=== PATIENT | male | born 1955 | race Caucasian/White ===

== ENCOUNTER 2020-01-02 13:32 | Inpatient (IN) | payer MEDICARE, OTHER ==
[~2020-01-02] VITALS: Ht 182.9 cm; Wt 100.5 kg
[2020-01-02 14:00] LABS: MEAN CORPUSCULAR HEMOGLOBIN 29.8 pg (27.5-34.5); MEAN PLATELET VOLUME 7.4 fL (7.4-10.4); PLATELET COUNT 369 x10^3/uL (130-400); RED BLOOD COUNT 4.47 x10^6/uL (4.38-5.82); RED CELL DISTRIBUTION WIDTH 12.7 % (9.4-14.8)
[2020-01-02 14:12] LABS: ALANINE AMINOTRANSFERASE 127 U/L (12-78); ALBUMIN 2.8 g/dL (3.4-5.0); ANION GAP 6 mmol/L (5-15); CALCIUM 8.5 mg/dL (8.5-10.1); CHLORIDE 96 mmol/L (98-107); CREATININE 1.28 mg/dL (0.7-1.3)
[2020-01-02 14:14] LABS: ALKALINE PHOSPHATASE 125 U/L (45-117); BILIRUBIN,TOTAL 0.9 mg/dL (0.2-1.0); TOTAL PROTEIN 8.4 g/dL (6.4-8.2)
[2020-01-02 14:40] LABS: MD YES
[2020-01-02 14:42] LABS: <PLATELET ESTIMATE> ADEQUATE; <PLT MORPHOLOGY> NORMAL PLT MORPH; <RBC MORPHOLOGY> NORMAL; BAND#(MANUAL) 1.56 x10^3/uL; BANDS%(MANUAL) 6 % (0-7); LYMPH#(MANUAL) 0.52 x10^3/uL (1-3.4); LYMPHS% (MANUAL) 2 % (22-44); MONOS#(MANUAL) 2.08 x10^3/uL (0.3-2.7); MONOS% (MANUAL) 8 % (2-9); SEG#(MANUAL) 21.84 x10^3/uL (1.8-6.8); SEGS% (MANUAL) 84 % (42-75)
--- NOTE | 2020-01-02 16:42 | NUR ---
RECENT XR AT URGENT CARE TODAY. PT CHANGED INTO A HOSPITAL GOWN AND IS AWAITING AN MD TO ASSESS.
--- NOTE | 2020-01-02 16:47 | NUR ---
MD IS AT THE BEDSIDE TO ASSESS.
[2020-01-02] MEDS ORDERED: SODIUM CHLORIDE FLUSH 10ML SYR IVF ONE (17:00)
[2020-01-02] MEDS ORDERED: SODIUM CHLORIDE 0.9% 1,000ML IVBOLUS ONE (17:00)
--- NOTE | 2020-01-02 17:12 | NUR ---
REPORT FROM ASHLIE LEVY. PT RESTING ON GURNEY. NADN. MONITORS APPLIED. PT AWARE OF NEED FOR UA. PROVIDED W/ URINAL.
--- NOTE | 2020-01-02 17:21 | NUR ---
PT RESTING IN BED. NADN. VSS.
[2020-01-02] MEDS ORDERED: OMNIPAQUE 350 MG/ML, 100ML BOTTLE ONE (17:25)
--- NOTE | 2020-01-02 17:38 | NUR ---
PT AWARE OF NEED FOR UA. STATES HE WILL ATTEMPT.
[2020-01-02] MEDS ORDERED: CEFTRIAXONE PMX 1GM/50ML 50 ML IVPB ONE (18:00)
[2020-01-02] MEDS ORDERED: METRONIDAZOLE PMX 500MG/100ML 100 ML IV ONE (18:00)
[2020-01-02] MEDS ORDERED: ATOR-2 PO (18:08)
[2020-01-02] MEDS ORDERED: OXYC10TA6 PO (18:08)
[2020-01-02] MEDS ORDERED: AMIT50TA PO (18:08)
[2020-01-02] MEDS ORDERED: ASPI-515 PO (18:08)
[2020-01-02] MEDS ORDERED: METRONIDAZOLE PMX 500MG/100ML 100 ML ONE (18:11)
[2020-01-02] MEDS ORDERED: CEFTRIAXONE PMX 1GM/50ML 50 ML ONE (18:11)
--- NOTE | 2020-01-02 18:12 | NUR ---
PT RESTING ON LIBBY. NARCISO. TAMARAS. PT AWARE OF POC FOR ADMIT AND IS AGREEABLE.
[2020-01-02 18:22] LABS: MICROSCOPIC INDICATED
--- NOTE | 2020-01-02 18:40 | NUR ---
PT MOVED FROM [facility] TO [facility] BED.
--- NOTE | 2020-01-02 19:05 | NUR ---
REPORT GIVEN TO SAMUEL MARTELL RN.
[2020-01-02] MEDS ORDERED: MORPHINE SULFATE 4 MG/ML, 1ML ONE ×2 (19:12→21:50)
[2020-01-02] MEDS: morphine SULFATE 10 MG/ML, 1ML IVPush PRN ×2 (19:14→22:46)
--- NOTE | 2020-01-02 19:21 | NUR ---
REPORT GIVEN TO CHANDANA DANIEL RN.
[2020-01-02] MEDS ORDERED: ONDANSETRON 2MG/ML, 2ML IVPush PRN (19:30)
[2020-01-02] MEDS ORDERED: BISACODYL 10 MG SUPP PR PRN (19:30)
[2020-01-02] MEDS ORDERED: PIPERACILLIN/TAZO/PMX 3.375GM 50 ML ONE (19:34)
[2020-01-02] MEDS ORDERED: LIDOCAINE 1%, 10ML ONE (19:43)
[2020-01-02] MEDS: PIPERACILLIN/TAZO/PMX 3.375GM 50 ML IV SCH (19:44)
[2020-01-02] MEDS ORDERED: FENTANYL PF 100 MCG/2ML ONE ×2 (19:50)
[2020-01-02] MEDS ORDERED: MIDAZOLAM 1 MG/ML, 5ML ONE (19:51)
[2020-01-02] MEDS: SODIUM CHLORIDE 0.9% 1,000 ML IV SCH (19:53)
[2020-01-02 21:39] VITALS: BP 145/82
[2020-01-02] MEDS ORDERED: morphine SULFATE 10 MG/ML, 1ML ONE (22:42)
[2020-01-03] MEDS ORDERED: PIPERACILLIN/TAZO/PMX 3.375GM 50 ML ONE ×3 (00:54→11:02)
[2020-01-03] MEDS: PIPERACILLIN/TAZO/PMX 3.375GM 50 ML IV SCH ×4 (01:18→23:34)
[2020-01-03] MEDS ORDERED: morphine SULFATE 10 MG/ML, 1ML ONE ×2 (03:04→13:10)
[2020-01-03] MEDS: morphine SULFATE 10 MG/ML, 1ML IVPush PRN ×6 (03:08→23:00)
[2020-01-03] MEDS: SODIUM CHLORIDE 0.9% 1,000 ML IV SCH ×3 (03:11→18:13)
[2020-01-03 03:15] VITALS: BP 131/74
[2020-01-03 05:14] LABS: MEAN CORPUSCULAR HEMOGLOBIN 29.7 pg (27.5-34.5); MEAN CORPUSCULAR HGB CONC 33.8 g/dL (33.2-36.2); MEAN PLATELET VOLUME 7.6 fL (7.4-10.4); PLATELET COUNT 311 x10^3/uL (130-400); RED BLOOD COUNT 4.42 x10^6/uL (4.38-5.82); RED CELL DISTRIBUTION WIDTH 13.1 % (9.4-14.8)
[2020-01-03 05:18] LABS: CHLORIDE 101 mmol/L (98-107)
[2020-01-03 05:27] LABS: ALANINE AMINOTRANSFERASE 107 U/L (12-78); ALBUMIN 2.4 g/dL (3.4-5.0); ALKALINE PHOSPHATASE 107 U/L (45-117); ANION GAP 3 mmol/L (5-15); CALCIUM 8.8 mg/dL (8.5-10.1); CREATININE 1.07 mg/dL (0.7-1.3); TOTAL PROTEIN 7.4 g/dL (6.4-8.2)
[2020-01-03 06:04] LABS: MD YES
[2020-01-03 06:07] LABS: BAND#(MANUAL) 1.21 x10^3/uL; BANDS%(MANUAL) 5 % (0-7); LYMPH#(MANUAL) 0.96 x10^3/uL (1-3.4); LYMPHS% (MANUAL) 4 % (22-44); MONOS#(MANUAL) 1.45 x10^3/uL (0.3-2.7); MONOS% (MANUAL) 6 % (2-9); SEG#(MANUAL) 20.49 x10^3/uL (1.8-6.8); SEGS% (MANUAL) 85 % (42-75)
[2020-01-03 06:12] LABS: <PLATELET ESTIMATE> ADEQUATE; POLYCHROMASIA 1+; TOXIC GRAN 1+
[2020-01-03 06:13] LABS: <PLT MORPHOLOGY> NORMAL PLT MORPH
--- NOTE | 2020-01-03 08:00 | NUR ---
RECEIVED REPORT FROM CHANDANA DANIEL RN. PT RESTING IN BED.
[2020-01-03] MEDS ORDERED: SODIUM BICARBONATE 1 MEQ/ML, 50ML VIAL IVPush ONE (08:30)
[2020-01-03] MEDS ORDERED: DEXTROSE 50%, 50ML SYRINGE IVPush ONE (08:30)
[2020-01-03] MEDS ORDERED: CALCIUM GLUCONATE 0.46MEQ/1ML IVPush ONE (08:30)
[2020-01-03] MEDS ORDERED: INSULIN REGULAR 100 UNITS/ML, 3ML VIAL IVPush ONE (08:30)
[2020-01-03] MEDS ORDERED: DEXTROSE 50%, 50ML SYRINGE ONE (09:49)
[2020-01-03] MEDS ORDERED: MORPHINE SULFATE 4 MG/ML, 1ML ONE (09:49)
[2020-01-03] MEDS ORDERED: INSULIN SINGLE DOSE, ER ONE (09:50)
[2020-01-03] MEDS ORDERED: SODIUM BICARB 8.4%, 50ML SYRINGE ONE (09:51)
--- NOTE | 2020-01-03 10:53 | NUR ---
PT MEDICATED PER MAY. PT RESTING IN BED. NADN. VSS. AWARE OF POC FOR ADMIT AND IV ABX. PT AWARE OF NPO STATUS.
[2020-01-03] MEDS ORDERED: VANCOMYCIN PER PHARMACY MC PRN (11:00)
--- NOTE | 2020-01-03 11:01 | NUR ---
YELLOW SLIP SENT TO PHARMACY FOR ZOSYN PER MAY.
[2020-01-03] MEDS ORDERED: VANCOMYCIN 2,300 MG in SODIUM CHLORIDE 0.9% 500 ML IV ONE (11:30)
--- NOTE | 2020-01-03 11:51 | NUR ---
PT PROVIDED W/ LEMON SWABS PT IS NPO AT THIS TIME.
[2020-01-03] MEDS ORDERED: PHARMACOKINETIC CONSULTATION MC ONE (13:00)
[2020-01-03] MEDS ORDERED: PHARMACOKINETIC MONITORING MC PRN (13:00)
--- NOTE | 2020-01-03 13:17 | NUR ---
PT MEDICATED WITH 5MG MORPHINE FOR 7/10 ABD PAIN. PT ON CONTINUOUS SPO2. WILL CONTINUE TO MONITOR.
--- NOTE | 2020-01-03 14:40 | NUR ---
REPORT GIVEN TO RECEIVING RN. ALL QUESTIONS ANSWERED. AWAITING PT TRANSPORT.
[2020-01-03 15:01] VITALS: BP 116/65
[2020-01-03 18:38] VITALS: BP 126/78
[2020-01-04] MEDS: VANCOMYCIN 1,800 MG in SODIUM CHLORIDE 0.9% 250 ML IV SCH ×2 (00:07→12:00)
[2020-01-04 00:57] VITALS: BP 110/71
[2020-01-04] MEDS: morphine SULFATE 10 MG/ML, 1ML IVPush PRN ×8 (02:40→23:47)
[2020-01-04] MEDS: SODIUM CHLORIDE 0.9% 1,000 ML IV SCH ×3 (04:56→23:45)
[2020-01-04] MEDS: PIPERACILLIN/TAZO/PMX 3.375GM 50 ML IV SCH ×4 (05:38→23:45)
[2020-01-04 05:55] LABS: MEAN CORPUSCULAR HEMOGLOBIN 29.5 pg (27.5-34.5); MEAN CORPUSCULAR HGB CONC 33.4 g/dL (33.2-36.2); MEAN PLATELET VOLUME 7.8 fL (7.4-10.4); PLATELET COUNT 278 x10^3/uL (130-400); RED BLOOD COUNT 3.89 x10^6/uL (4.38-5.82); RED CELL DISTRIBUTION WIDTH 13.2 % (9.4-14.8)
[2020-01-04 06:00] LABS: CHLORIDE 106 mmol/L (98-107)
[2020-01-04 06:13] LABS: ALANINE AMINOTRANSFERASE 67 U/L (12-78); ALKALINE PHOSPHATASE 90 U/L (45-117); ANION GAP 3 mmol/L (5-15); BILIRUBIN,TOTAL 0.8 mg/dL (0.2-1.0); CALCIUM 8.1 mg/dL (8.5-10.1); CREATININE 0.92 mg/dL (0.7-1.3); TOTAL PROTEIN 6.4 g/dL (6.4-8.2)
[2020-01-04 06:41] LABS: MD SCAN
[2020-01-04 06:44] LABS: BASOPHILS % (AUTO) 0 % (0-1); EOSINOPHILS % (AUTO) 0 % (1-7); LYMPHOCYTES % (AUTO) 3 % (22-44); MONOCYTES % (AUTO) 5 % (2-9); NEUTROPHILS % (AUTO) 92 % (42-75)
[2020-01-04 07:44] VITALS: BP 121/71
[2020-01-04 12:37] VITALS: BP 108/56
[2020-01-04 19:15] VITALS: BP 108/65
[2020-01-05 02:15] VITALS: BP 126/68
[2020-01-05] MEDS: morphine SULFATE 10 MG/ML, 1ML IVPush PRN ×4 (02:48→12:04)
[2020-01-05 05:15] LABS: BASOPHILS % (AUTO) 0 % (0-1); EOSINOPHILS % (AUTO) 0 % (1-7); LYMPHOCYTES % (AUTO) 5 % (22-44); MEAN CORPUSCULAR HEMOGLOBIN 28.9 pg (27.5-34.5); MEAN CORPUSCULAR HGB CONC 32.9 g/dL (33.2-36.2); MEAN PLATELET VOLUME 7.9 fL (7.4-10.4); MONOCYTES % (AUTO) 6 % (2-9); NEUTROPHILS % (AUTO) 90 % (42-75); PLATELET COUNT 294 x10^3/uL (130-400); RED BLOOD COUNT 3.85 x10^6/uL (4.38-5.82); RED CELL DISTRIBUTION WIDTH 13.1 % (9.4-14.8)
[2020-01-05 05:31] LABS: ALANINE AMINOTRANSFERASE 60 U/L (12-78); ALBUMIN 1.8 g/dL (3.4-5.0); ANION GAP 5 mmol/L (5-15); CALCIUM 7.5 mg/dL (8.5-10.1); CHLORIDE 105 mmol/L (98-107); CREATININE 0.93 mg/dL (0.7-1.3)
[2020-01-05 05:33] LABS: ALKALINE PHOSPHATASE 87 U/L (45-117); BILIRUBIN,TOTAL 0.8 mg/dL (0.2-1.0); TOTAL PROTEIN 5.9 g/dL (6.4-8.2)
[2020-01-05] MEDS: PIPERACILLIN/TAZO/PMX 3.375GM 50 ML IV SCH ×3 (06:03→17:57)
[2020-01-05 06:07] LABS: MD SCAN
[2020-01-05 08:40] VITALS: BP 135/82
[2020-01-05] MEDS ORDERED: SENN1TAB59 PO (12:46)
[2020-01-05] MEDS ORDERED: OXYC10TA6 PO (12:46)
[2020-01-05 14:02] VITALS: BP 116/72
== END 2020-01-05 18:00 | disposition home or self-care (01) | DRG 871 ==
LOC: ED 16:46 → EDIP 19:25 → 4NE 01-03 15:10
PROVIDERS: ADMIT Family Medicine; ATTEND Hospitalist
PROC: 0W9H30Z Drainage of Retroperitoneum with Drainage Device, Percutaneous Approach (ICD-10-PCS; 2020-01-02)
PROC: 02HV33Z Insertion of Infusion Device into Superior Vena Cava, Percutaneous Approach (ICD-10-PCS; principal; 2020-01-05)
PROC: B548ZZA Ultrasonography of Superior Vena Cava, Guidance (ICD-10-PCS; 2020-01-05)
DX: A41.9 Sepsis, unspecified organism (principal); K68.19 Other retroperitoneal abscess; K63.0 Abscess of intestine; E87.1 Hypo-osmolality and hyponatremia; F11.20 Opioid dependence, uncomplicated; D63.8 Anemia in other chronic diseases classified elsewhere; E78.5 Hyperlipidemia, unspecified; E87.5 Hyperkalemia; E87.6 Hypokalemia; F12.90 Cannabis use, unspecified, uncomplicated; R73.9 Hyperglycemia, unspecified; R74.01 Elevation of levels of liver transaminase levels; G89.29 Other chronic pain; K59.00 Constipation, unspecified; Z82.49 Family history of ischemic heart disease and other diseases of the circulatory system; Z83.3 Family history of diabetes mellitus; Z98.1 Arthrodesis status
CPT/HCPCS: 36415; 36573; 49406; 74177; 75989; 80053; 80074; 81001; 82378; 82962; 83036; 83605; 84132; 84145; 85025; 87040; 87070; 87075; 87076; 87077; 87186; 87205; 93005; 99156; 99157; G0378; J0610; J0696; J1815; J2250; J2543; J3010; J3370; Q9967; C1729; C1751; C1769; J2270; J7030; J7040; J7050

== ENCOUNTER → 2020-01-22 | Outpatient (CLI) | payer MEDICARE ==
[~2020-01-22] MED LIST: AMIT50TA PO; ASPI-515 PO; ATOR-2 PO; OMNIPAQUE 350 MG/ML, 100ML BOTTLE ONE; OXYC10TA6 PO; SENN1TAB59 PO
== END | disposition home or self-care (01) ==
LOC: CFH 08:19
PROVIDERS: ATTEND Internal Medicine Infectious Disease
DX: N28.1 Cyst of kidney, acquired (principal); K65.1 Peritoneal abscess; J90 Pleural effusion, not elsewhere classified; J98.11 Atelectasis; R16.1 Splenomegaly, not elsewhere classified
CPT/HCPCS: 74177; Q9967

== ENCOUNTER 2020-03-01 06:19 | Day surgery (SDC) | payer MEDICARE ==
[2020-02-27 12:30] LABS: BASOPHILS % (AUTO) 1 % (0-1); EOSINOPHILS % (AUTO) 3 % (1-7); LYMPHOCYTES % (AUTO) 27 % (22-44); MEAN CORPUSCULAR HEMOGLOBIN 27.9 pg (27.5-34.5); MEAN CORPUSCULAR HGB CONC 33.1 g/dL (33.2-36.2); MEAN PLATELET VOLUME 8.6 fL (7.4-10.4); MONOCYTES % (AUTO) 8 % (2-9); NEUTROPHILS % (AUTO) 62 % (42-75); PLATELET COUNT 184 x10^3/uL (130-400); RED BLOOD COUNT 4.27 x10^6/uL (4.38-5.82); RED CELL DISTRIBUTION WIDTH 16.5 % (9.4-14.8)
[2020-02-27 12:34] LABS: MD NO
[2020-02-27 12:37] LABS: CHLORIDE 109 mmol/L (98-107)
[2020-02-27 12:49] LABS: ALANINE AMINOTRANSFERASE 61 U/L (12-78); ALBUMIN 3.2 g/dL (3.4-5.0); ALKALINE PHOSPHATASE 117 U/L (45-117); ANION GAP 2 mmol/L (5-15); BILIRUBIN,TOTAL 0.6 mg/dL (0.2-1.0); CALCIUM 8.6 mg/dL (8.5-10.1); CREATININE 0.97 mg/dL (0.7-1.3); TOTAL PROTEIN 7.5 g/dL (6.4-8.2)
[~2020-03-01] VITALS: Ht 182.9 cm; Wt 89.3 kg
[~2020-03-01 06:19] MED LIST changes: -OMNIPAQUE 350 MG/ML, 100ML BOTTLE ONE; +ROSU20TA2 PO
[2020-03-01 06:52] VITALS: BP 111/78
[2020-03-01] MEDS ORDERED: CHLORHEXIDINE 15 ML UDC ONE (06:58)
[2020-03-01] MEDS ORDERED: LACTATED RINGERS 1,000 ML IV SCH (07:00)
[2020-03-01] MEDS ORDERED: CHLORHEXIDINE 15 ML UDC MM ONE (07:00)
[2020-03-01] MEDS ORDERED: PROPOFOL 100 ML ONE (07:32)
[2020-03-01] MEDS ORDERED: ACETAMINOPHEN 325 MG TABLET PO PRN (08:00)
[2020-03-01] MEDS ORDERED: OXYcodone 5 MG/5 ML ORAL.SOL UDC PO PRN (08:00)
[2020-03-01] MEDS ORDERED: PROMETHAZINE 25 MG/ML, 1ML IVPush PRN (08:00)
[2020-03-01] MEDS ORDERED: ONDANSETRON 2MG/ML, 2ML IVPush PRN (08:00)
[2020-03-01] MEDS ORDERED: FENTANYL PF 100 MCG/2ML IV PRN (08:00)
[2020-03-01] MEDS ORDERED: LORazepam 2 MG/ML, 1ML IVPush PRN (08:00)
[2020-03-01] MEDS ORDERED: PROMETHAZINE 25 MG SUPP PR PRN (08:00)
[2020-03-01] MEDS ORDERED: METHOCARBAMOL 1,000 MG in DEXTROSE 5% 100 ML IV PRN (08:00)
[2020-03-05] MEDS ORDERED: AMOX1TAB64 PO (11:59)
== END 2020-03-01 09:15 | disposition home or self-care (01) ==
LOC: OUT 06:19
PROVIDERS: ATTEND Surgery
DX: K65.1 Peritoneal abscess (principal); K63.89 Other specified diseases of intestine; E78.00 Pure hypercholesterolemia, unspecified; Z20.828 Contact with and (suspected) exposure to other viral communicable diseases; Z79.899 Other long term (current) drug therapy; Z98.890 Other specified postprocedural states; Z72.89 Other problems related to lifestyle; Z87.891 Personal history of nicotine dependence; Z82.49 Family history of ischemic heart disease and other diseases of the circulatory system; Z83.3 Family history of diabetes mellitus
CPT/HCPCS: 36415; 45378; 80053; 82378; 85025; 93005; J2704; J7120; U0003

== ENCOUNTER → 2020-07-16 | Outpatient (CLI) | payer MEDICARE ==
[~2020-07-16] MED LIST changes: +AMOX1TAB64 PO; -ASPI-515 PO; +ASPI-963 PO
== END | disposition home or self-care (01) ==
LOC: RAD 12:38
PROVIDERS: ATTEND Anesthesiology
DX: M47.817 Spondylosis without myelopathy or radiculopathy, lumbosacral region (principal); M51.36 Other intervertebral disc degeneration, lumbar region; M48.07 Spinal stenosis, lumbosacral region
CPT/HCPCS: 72148